=== PATIENT | male | born 2000 | race African-American/Black ===

== ENCOUNTER 2018-07-21 16:41 | Emergency (ER) | payer OTHER ==
[~2018-07-21] VITALS: Ht 165.1 cm; Wt 49.9 kg
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
[2018-07-21] MEDS ORDERED: Sodium Chloride 500ML 500 ML IV ONE (17:00)
[2018-07-21 17:38] VITALS: BP 137/77
[2018-07-21 17:38] LABS: BASOPHILS % (AUTO) 1.2 % (0.0-2.0); EOSINOPHILS % (AUTO) 1.3 % (0.0-3.0); HEMOGLOBIN 14.3 G/DL (14.2-18.0); LYMPHOCYTES % (AUTO) 25.5 % (20.0-45.0); MEAN CORPUSCULAR VOLUME 81 FL (80-99); MONOCYTES % (AUTO) 3.9 % (1.0-10.0); PLATELET COUNT 207 K/UL (150-450); RED BLOOD COUNT 5.54 M/UL (4.70-6.10); RED CELL DISTRIBUTION WIDTH 12.6 % (11.6-14.8)
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
[2018-07-21] MEDS ORDERED: Lidocaine HCl 2% Jelly 6ml Tube TOPIC ONE (17:45)
[2018-07-21 17:48] LABS: INR 1.1 (0.9-1.1)
[2018-07-21 18:00] LABS: ANION GAP 10 mmol/L (5-15); BLOOD UREA NITROGEN 9 mg/dL (7-18); CARBON DIOXIDE 26 MMOL/L (21-32); CHLORIDE 106 MMOL/L (98-107); POTASSIUM 3.7 MMOL/L (3.5-5.1); SODIUM 142 MMOL/L (136-145)
[2018-07-21] MEDS ORDERED: Lidocaine 1% 10mg/ml/Epi 0.005mg/ml 30ml vial INJ ONE (18:00)
[2018-07-21 18:06] LABS: ALANINE AMINOTRANSFERASE 43 U/L (12-78); ALBUMIN 4.3 G/DL (3.4-5.0); ALBUMIN/GLOBULIN RATIO 1.2 (1.0-2.7); ALKALINE PHOSPHATASE 99 U/L (46-116); ASPARTATE AMINO TRANSFERASE 35 U/L (15-37); BILIRUBIN,TOTAL 0.5 MG/DL (0.2-1.0)
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
--- NOTE | 2018-07-21 19:06 | NUR ---
HAND-OFF: Report given to RITA Green.
--- NOTE | 2018-07-21 19:07 | NUR ---
ED Nurse Note: Report received from RITA Barnes. Pt ambulatory with steady gait. Came in for laceration of left eye and pain reported on arm. Pt currently awaiting arrival of opthomologist for laceration repair. Pt in no acute distress. VSS. Will continue to monitor.
[2018-07-21] MEDS ORDERED: Bacitracin Oint UD TOPIC ONE (19:28)
--- NOTE | 2018-07-21 19:31 | NUR ---
ED Nurse Note: Dr. Kishore Reaves @ bedside. Addendum: 07/21/18 at 1931 by [email or web address] ED Nurse Note: Dr. Kishore Reaves @ bedside performing laceration repair.
--- NOTE | 2018-07-21 20:02 | NUR ---
ED Nurse Note: Laceration repair completed. Pt in no acute distress. [employer] at bedside.
[2018-07-21] MEDS ORDERED: CEPHALEXIN500 MG ORAL (20:16)
[2018-07-21] MEDS ORDERED: BACITRACIN ZIN1 EACH TOPIC (20:16)
[2018-07-21 20:24] VITALS: BP 123/97
--- NOTE | 2018-07-21 20:25 | NUR ---
ED Nurse Note: Pt cleared by MD. Discharge instructions and prescriptions provided. Pt verbalized understanding of all instructions. IV and ID band removed. Pt ambulatory with steady gait, A/Ox4. In no acute distress. VSS. All belongings taken with patient. Pt to be picked up by family member.
--- NOTE | 2018-07-22 10:32 | Diagnostic Imaging Report ---
Indication: Neck pain. Technique: Continuous helical imaging of the cervical spine was obtained transaxially from the skull base to the upper thoracic spine. 2-D coronal and sagittal reformatted images were obtained. Automatic Exposure Control was utilized. Total Dose length Product (DLP): 1519.[address] Dose Index Volume (CTDIvol): 70.38,11.77 mGy Comparison: None Findings: There is reversal cervical lordosis which may be due to muscle spasm. There is no evidence of an acute fracture or malalignment. Atlantoaxial alignment appears normal. Height and configuration of the vertebral bodies and intervertebral discs are within normal limits. Uncovertebral joints and facets are unremarkable. There is no soft tissue swelling. Impression: No evidence of acute injury The CT scanner at [facility] is accredited by the [employer] and the scans are performed using dose optimization techniques as appropriate to a performed exam including Automatic Exposure control.
--- NOTE | 2018-07-22 10:34 | Diagnostic Imaging Report ---
Indication: Headache. Head trauma Technique: Contiguous 5 mm thick transaxial imaging of the head obtained in a Siemens Sensation [address] scanner. Soft tissue and bone windows generated. Automatic Exposure Control was utilized. Total Dose length Product (DLP): 1519.[address] Dose Index Volume (CTDIvol): 70.38,11.77 mGy Comparison: none Findings: The size and configuration of the cortical sulci, basal cisterns, and ventricles are within normal limits for age. There is no mass effect, midline shift, or edema identified. There is no evidence of acute hemorrhage or abnormal intra-axial or extra-axial fluid collections. Left periorbital soft tissue swelling demonstrated. No obvious fracture is identified. Impression: No mass effect, edema or acute bleed. Left periorbital soft tissue contusion The CT scanner at [facility] is accredited by the [employer] and the scans are performed using dose optimization techniques as appropriate to a performed exam including Automatic Exposure control.
--- NOTE | 2018-07-22 13:39 | Diagnostic Imaging Report ---
Indication: Left wrist pain Findings: 3 views of the left wrist were obtained. No acute fractures, malalignment, erosions or periostitis are identified. Soft tissues are unremarkable. Impression: No acute findings.
--- NOTE | 2018-07-22 13:39 | Diagnostic Imaging Report ---
Indication: Pain Forearm pain Findings: 2 views of the left forearm were obtained. No acute fractures, malalignment, erosions or periostitis are identified. Bone mineralization is within normal limits. Soft tissues are unremarkable. Impression: Negative for acute injury.
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
== END 2018-07-21 20:30 | disposition home or self-care (01) ==
LOC: EMR 17:55
DX: S01.81XA Laceration without foreign body of other part of head, initial encounter (principal); S60.212A Contusion of left wrist, initial encounter; V13.0XXA Pedal cycle driver injured in collision with car, pick-up truck or van in nontraffic accident, initial encounter; Y93.55 Activity, bike riding; Y92.89 Other specified places as the place of occurrence of the external cause
CPT/HCPCS: 36415; 70450; 72125; 80053; 85025; 85610; 85730; 86850; 86900; 86901; 96374; 99284

== ENCOUNTER 2018-07-30 18:15 | Emergency (ER) | payer OTHER ==
[~2018-07-30] VITALS: Ht 165.1 cm; Wt 49.4 kg
[~2018-07-30 18:15] MED LIST: BACITRACIN ZIN1 EACH TOPIC; CEPHALEXIN500 MG ORAL
[2018-07-30 18:30] VITALS: BP 126/52
--- NOTE | 2018-07-30 18:30 | NUR ---
ED Nurse Note: pt walked in to ED for wound check on left upper eyelid. per pt, unable to follow with Dr. Reaves. no sign of infection noted. per pt, " I need strong pain meds." AAO x4. respirations even and non-labored noted. will wait for the further order.
--- NOTE | 2018-07-30 18:50 | Emergency Room Report ---
History of Present Illness General Chief Complaint: Wound Recheck/Suture Removal Source: Patient Present Illness HPI 17-year-old male patient presents the ER for wound check of facial lacerations sustained 1 week ago. Patient reports he still has pain in his left eye. Reports laceration has improved. Denies fever, chest pain, shortness of breath , vomiting. Denies history of diabetes. Reports has been taking the oral antibiotics however "sometimes forgets taking them" and has not complete the full course. Reports he has been applying topical antibiotics daily. States he did not follow-up with the plastic surgeon who performed the procedure. States that he "lost the information" and does not know how to contact him to schedule an appointment. States that he took Motrin with mild relief of symptoms. Denies other aggravating or relieving factors. Allergies: Coded Allergies: No Known Allergies (Unverified , 07/21/18) Patient History Past Medical History: see triage record Reviewed Nursing Documentation: PMH: Agreed; PSxH: Agreed Nursing Documentation-PMH Past Medical History: No Stated History Review of Systems All Other Systems: negative except mentioned in HPI Physical Exam Vital Signs Date Time Temp Pulse Resp B/P (MAP) Pulse Ox O2 Delivery O2 Flow Rate FiO2 07/30/18 18:24 98.6 65 20 126/52 98 Room Air Sp02 EP Interpretation: reviewed, normal General Appearance: well appearing, no apparent distress, alert, GCS 15, non- toxic Head: normocephalic, atraumatic Eyes: bilateral eye normal inspection, bilateral eye PERRL, bilateral eye EOMI ENT: hearing grossly normal, normal pharynx, no angioedema, normal voice, uvula midline, moist mucus membranes Neck: full range of motion Respiratory: lungs clear, normal breath sounds, no rhonchi, no respiratory distress, no accessory muscle use, no wheezing, speaking full sentences Cardiovascular #1: regular rate, rhythm, no edema Neurologic: alert, oriented x3, responsive, motor strength/tone normal, sensory intact Psychiatric: mood/affect normal Skin: laceration - Healing laceration over left eyelid extending towards glabellar region, no surrounding erythema or edema, scabbing noted, no drainage Medical Decision Making PA Attestation Dr. Trevino is my supervising Physician whom patient management has been discussed with. Diagnostic Impression: Primary Impression: Encounter for wound re-check ER Course Pt. presents to the ED requesting wound check of laceration over left eyebrow. Ddx considered but are not limited to cellulitis, abscess, wound check, folliculitis. Vital signs: are WNL, pt. is afebrile ER COURSE: Wound has no signs of infection., no erythema, edema, TTP, sensation is intact to light touch. Provide with Toradol for pain. Bacitracin applied to wound. Apply Neosporin to wound to reduce appearance of scar. Take full course of antibiotics as instructed. Take Tylenol and ibuprofen [id number] for pain. ER precautions given. Follow-up with Dr. Reaves, call to schedule appointment, contact information provided. DISCHARGE: Patient instructed to continue with medications per initial ER provider instructions. At this time pt. is stable for d/c to home. Patient resting comfortably, in no acute distress, nontoxic appearing. Will provide printed patient care instructions and any necessary prescriptions. Care plan and follow up instructions have been discussed with the patient prior to discharge. Patient instructed to follow-up with primary care provider for further treatment and referral. Patient questions asked and answered. ER precautions given. Patient instructed to return to ER immediately for any new or worsening of symptoms including but not limited to fever, worsening of pain symptoms. - Please note that this Emergency Department Report was dictated using [employer] photojournalist technology software, occasionally this can lead to erroneous entry secondary to interpretation by the dictation equipment. Last Vital Signs Date Time Temp Pulse Resp B/P (MAP) Pulse Ox O2 Delivery O2 Flow Rate FiO2 07/30/18 18:24 98.6 65 20 126/52 98 Room Air Disposition: HOME, SELF-CARE Condition: Stable Referrals: NOT CHOSEN IPA/,REFERRING (PCP) Patient Instructions: Wound Check Additional Instructions: Patient instructed to follow-up with Dr. Reaves in 2-3 days for wound check Call to schedule appointment. Take medications as directed. Take full course of abx as instructed. Take Tylenol, Motrin, or Naproxen OTC for pain symptoms. Keep wound clean and dry. Patient questions asked and answered. ER precautions given, patient instructed to return to ER immediately for any new or worsening of symptoms. Juan Anderson Jul 30, 2018 18:50
[2018-07-30] MEDS ORDERED: Ketorolac 30mg Inj IM ONE (19:00)
[2018-07-30] MEDS ORDERED: Bacitracin Oint UD TOPIC ONE (19:00)
[2018-07-30 19:07] VITALS: BP 126/52
--- NOTE | 2018-07-30 19:10 | NUR ---
ED Nurse Note: pt instructed to make an appointment with Dr. Reaves. Patient is being discharged from medical care. Awake, alert and oriented x3. ID band were removed. Patient ambulated out with all personal belongings with steady gait.
== END 2018-07-30 19:11 | disposition home or self-care (01) ==
LOC: EMR 18:39
DX: S01.112D Laceration without foreign body of left eyelid and periocular area, subsequent encounter (principal); X58.XXXD Exposure to other specified factors, subsequent encounter
CPT/HCPCS: 96372; 99283; J1885